=== PATIENT | male | born 1960 | race Caucasian/White ===

== ENCOUNTER 2024-05-15 06:30 | Day surgery (SDC) | payer BC, MEDICARE, OTHER ==
[2024-05-15] MEDS ORDERED: Midazolam 1 MG/ML 2 ML SDV IV ONE (06:31)
[2024-05-15] MEDS ORDERED: fentaNYL 100 MCG/2 ML SDV IV ONE (06:31)
[2024-05-15] MEDS ORDERED: Midazolam 1 MG/ML 2 ML SDV ONE (06:38)
[2024-05-15] MEDS ORDERED: fentaNYL 100 MCG/2 ML SDV ONE (06:39)
[2024-05-15] MEDS: Dextrose 5%-0.45% NaCl 1,000 ML IV SCH (07:05)
[2024-05-15] MEDS: fentaNYL 100 MCG/2 ML SDV IV ONE ×2 (08:04→08:05)
[2024-05-15] MEDS: Midazolam 1 MG/ML 2 ML SDV IV ONE ×2 (08:06→08:08)
== END 2024-05-15 10:02 | disposition home or self-care (01) ==
LOC: DL.ENDO 06:30
PROVIDERS: ATTEND Internal Medicine Gastroenterology
DX: K59.00 Constipation, unspecified (principal)
CPT/HCPCS: 43239; 87077; 88305; J2250; J3010; J7799